=== PATIENT | male | born 1985 | race Caucasian/White ===

== ENCOUNTER → 2021-06-26 | Outpatient (CLI) | payer OTHER ==
--- NOTE | 2021-07-01 14:27 | RAD ---
AP and Lateral Views of the Chest 06/26/2021 11:36 AM Indication: Reason: ASTHMA / Spl. Instructions: / History: Comparison: None Findings: Calcified granuloma noted, left midlung. There is no focal consolidation or infiltrate iden tified. Heart size is normal. There is no evidence of pneumothorax or pleural effusion. No acute osse ous abnormalities are identified. Impression: No evidence of acute cardiopulmonary process. Electronically signed by: Murali Chapin MD (07/01/2021 2:24 PM) [id number]
== END ==
LOC: RAD 13:15
PROVIDERS: ATTEND Internal Medicine Critical Care Medicine
DX: J84.10 Pulmonary fibrosis, unspecified (principal); J45.909 Unspecified asthma, uncomplicated
CPT/HCPCS: 71046

== ENCOUNTER → 2021-07-29 | Outpatient (CLI) | payer OTHER ==
--- NOTE | 2021-07-30 11:39 | CARD ---
MR#: [id number] Date of Study: 07/29/2021 Ordering Physician: MARY BLACKWELL, Referring Physician: Saumya REDMOND: Jabier Menendez [facility] [place] APPROVED REPORT EXAM: Two-dimensional and M-mode echocardiogram with Doppler and color Doppler. Other Information Quality : GoodHR: 57bpm Rhythm : NSR INDICATION Dyspnea 2D DIMENSIONS Left Atrium(2D)3.1 (1.6-4.0cm)IVSd0.9 (0.7-1.1cm) Aortic Root(2D)3.2 (2.0-3.7cm)LVDd4.8 (3.9-5.9cm) LVOT Diameter2.1 (1.8-2.4cm)PWd0.9 (0.7-1.1cm) LVDs3.0 (2.5-4.0cm)FS (%) 36.4 % SV70.6 mlLVEF(%)66.0 (>50%) Mitral Valve MV E Dpoeffqh12.6cm/sMV E Peak Gr.4mmHg MV DECEL [id number] A Jxkdoqer83.4cm/s MV E Mean Gr.1mmHgE/A Ratio1.5 Pulmonary Valve PV Peak Whzzoftu78.0cm/s Pulmonary Vein S1 Fqzwoioh27.0cm/sD2 Lsadyiai32.6cm/s LEFT VENTRICLE The left ventricle is normal size. There is normal left ventricular wall thickness. The left ventricu lar systolic function is normal. The ejection fraction is 55-60%. There is normal LV segmental wall m otion. The left ventricular diastolic function and filling is normal for age. No left ventricle throm bus noted on this study. There is no ventricular septal defect visualized. There is no left ventricul ar aneurysm. There is no mass noted in the left ventricle. RIGHT VENTRICLE The right ventricle is normal size. There is normal right ventricular wall thickness. The right ventr icular systolic function is normal. ATRIA The left atrium size is normal. The right atrium size is normal. The interatrial septum is intact wit h no evidence for an atrial septal defect or patent foramen ovale as noted on 2-D or Doppler imaging. AORTIC VALVE The aortic valve is normal in structure and function. Doppler and Color Flow revealed no significant aortic regurgitation. There is no significant aortic valvular stenosis. There is no aortic valvular v egetation. MITRAL VALVE The mitral valve is normal in structure and function. There is no evidence of mitral valve prolapse. There is no mitral valve stenosis. Doppler and Color-flow revealed trace mitral regurgitation. TRICUSPID VALVE The tricuspid valve is normal in structure and function. Doppler and Color Flow revealed trace to mil d tricuspid regurgitation. There is no tricuspid valve prolapse or vegetation. There is no tricuspid valve stenosis. PULMONIC VALVE The pulmonary valve is normal in structure and function. Doppler and Color Flow revealed no pulmonic valvular regurgitation. There is no pulmonic valvular stenosis. GREAT VESSELS The aortic root is normal in size. The ascending aorta is normal in size. The pulmonary artery is nor mal. The IVC is normal in size and collapses >50% with inspiration. PERICARDIAL EFFUSION There is no pleural effusion. There is no evidence of significant pericardial effusion. Critical Notification Critical Value: No <Conclusion> The left ventricular systolic function is normal. The ejection fraction is 55-60%. There is normal LV segmental wall motion. Trace mitral regurgitation. Trace to mild tricuspid regurgitation. There is no evidence of significant pericardial effusion. Signed by : Darron Kim, Electronically Approved : 07/30/2021 11:38:44
== END ==
LOC: ECHO 15:28
PROVIDERS: ATTEND Internal Medicine Critical Care Medicine
DX: I07.1 Rheumatic tricuspid insufficiency (principal); R06.00 Dyspnea, unspecified
CPT/HCPCS: 93306; C8929